=== PATIENT | male | born 1935 | race Caucasian/White ===

== ENCOUNTER 2016-04-07 08:56 | Day surgery (SDC) | payer MEDICARE, OTHER ==
[2016-04-07] MEDS ORDERED: ACETAMINOPHEN 325 MG ONE (09:07)
[2016-04-07] MEDS: PROPARACAINE HCL 0.5% OPHTHALMIC SOL ONE ×3 (09:21→10:55)
[2016-04-07] MEDS: CYCLOPENTOLATE 1% SOL ONE ×2 (09:21→09:35)
[2016-04-07] MEDS: PHENYLEPHRINE HCL 10% OPHTHAL SOL ONE ×2 (09:21→09:35)
[2016-04-07] MEDS: MOXIFLOXACIN HCL OPHTH SOL ONE ×3 (09:22→11:26)
[2016-04-07] MEDS: KETOROLAC 0.5% OPTH 60 DROP SOL ONE ×2 (09:22→09:36)
[2016-04-07] MEDS ORDERED: TRYPAN BLUE 0.5 ML SOL IO ONE (09:55)
[2016-04-07] MEDS ORDERED: LIDOCAINE HCL 1% MPF SOL ONE (09:55)
[2016-04-07] MEDS ORDERED: POVIDONE IODINE 5% SOL ONE (09:55)
[2016-04-07] MEDS ORDERED: BSS W/ 0.25MG P.F. EPI 1 BOTTLE ONE (09:56)
[2016-04-07] MEDS ORDERED: FENTANYL CITRATE 50 MCG/ML SOL ONE (10:10)
[2016-04-07] MEDS ORDERED: MIDAZOLAM 2 MG/2 ML SOL ONE (10:10)
[2016-04-07] MEDS ORDERED: ACETAZOLAMIDE 500 MG CER ONE (10:54)
[2016-04-07 11:41] VITALS: BP 125/79; PULSE 58; RESP 18; TEMP 975; O2SAT 93
== END 2016-04-07 12:20 | disposition home or self-care (01) | DRG 125 ==
LOC: SURG 08:56
PROVIDERS: ATTEND Ophthalmology
DX: H25.9 Unspecified age-related cataract (principal); H21.81 Floppy iris syndrome
CPT/HCPCS: J2250; J3010; J2001